=== PATIENT | female | born 1955 | race Caucasian/White ===

== ENCOUNTER 2021-06-22 15:40 | Outpatient (CLI) | payer BC | END 2021-06-22 15:41 | disposition home or self-care (01) | LOC: CSHMRI 15:40 | PROVIDERS: ATTEND Orthopaedic Surgery | DX: M75.42 Impingement syndrome of left shoulder (principal); S43.432A Superior glenoid labrum lesion of left shoulder, initial encounter; M67.412 Ganglion, left shoulder ==